=== PATIENT | male | born 1985 | race African-American/Black ===

== ENCOUNTER 2024-04-05 11:25 | Emergency (ER) | payer MEDICAID ==
[~2024-04-05] VITALS: Ht 177.8 cm; Wt 84.1 kg
[2024-04-05] MEDS ORDERED: CEPH-585 PO (12:36)
[2024-04-05] MEDS ORDERED: NEOM10SO7 RIGHT EAR (12:36)
[2024-04-05] MEDS ORDERED: ACET-3068 PO (12:45)
[2024-04-05 12:53] VITALS: BP 122/67; PULSE 90; RESP 16; TEMP 98.2; O2SAT 99
== END 2024-04-05 12:54 | disposition home or self-care (01) ==
LOC: ER 11:26
DX: H60.8X1 Other otitis externa, right ear (principal); Z79.2 Long term (current) use of antibiotics; Z79.899 Other long term (current) drug therapy
CPT/HCPCS: 99283